=== PATIENT | male | born 1990 | race Caucasian/White ===

== ENCOUNTER 2022-01-28 13:24 | Emergency (ER) | payer MEDICARE, MEDICAID, SELFPAY ==
[2022-01-28] VITALS (18 sets, daily range): BP systolic 143–181; BP diastolic 75–120; PULSE 98–121; RESP 18–28; TEMP 36.8–36.9; O2SAT 98–100; BMI 24.3
--- NOTE | 2022-01-28 13:20 | ECG_ITS ---
APPROVED REPORT Exam: Resting ECG HR:111 bpm ECG Measurements Heart Rate 111 AXES ND 124 P 29 QRSd 153 QRS 70 QT 368 T 49 QTc 433 Conclusion SINUS TACHYCARDIA LEFT ATRIAL ENLARGEMENT [-0.15mV P-WAVE IN V1/V2] RIGHT BUNDLE BRANCH BLOCK [120+ ms QRS DURATION, UPRIGHT V1, 40+ ms S IN I/aVL/V4/V5/V6] ABNORMAL ECG UNCONFIRMED REPORT Electronically signed by : Marcio Mishra MD 01/29/2022 06:56:40
--- NOTE | 2022-01-28 13:27 | XR_ITS ---
FINAL REPORT CLINICAL HISTORY: cough, SOA FINDINGS: SINGLE-VIEW CHEST There is mild cardiomegaly. The mediastinum is normal. There are patchy bibasilar airspace infiltrates, right greater than left probably due to small focus of pneumonia. There is no pneumothorax. IMPRESSION: Bibasilar infiltrates, probably due to small focus of pneumonia. Reviewed, Interpreted and Dictated by Arnulfo Granados MD Transcribed by Shyanne Beavers Authenticated and [facility]
[2022-01-28 13:37] LABS: Basophils # 0.1 K/mm3 (0-0.2); Basophils % 0.9 % (0.1-2.0); Eosinophils # 0.3 K/mm3 (0.0-0.4); Eosinophils % 3.7 % (0.1-12.0); Hematocrit 22.9 % (42.0-52.0); Hemoglobin 7.7 g/dL (14.1-18.0); Lymphocytes # 1.7 K/mm3 (0.7-4.5); Lymphocytes % 18.9 % (10-50); Mean Corpuscular HGB Conc 33.7 g/dL (31.8-35.4); Mean Corpuscular Volume 95.1 fl (80-94); Mean Platelet Volume 9.4 fl (7.4-10.4); Monocytes # 0.4 K/mm3 (0.1-1.0); Monocytes % 4.7 % (1.7-9.3); Neutrophils # 6.5 K/mm3 (1.8-7.8); Neutrophils % 71.9 % (37.0-80.0); Platelet Count 189 K/mm3 (142-424); Red Blood Count 2.41 M/mm3 (4.60-6.20)
[2022-01-28 13:38] LABS: Chloride 93 mmol/L (98-107); Potassium 5.9 mmoL/L (3.5-5.1); Sodium 139 mmol/L (136-145)
--- NOTE | 2022-01-28 13:38 | HMH.EDGENADL ---
Discharge Plan Disposition Chief Complaint: Shortness of Breath/Dyspnea Referrals Follow up/Referrals: Provider,Guy, [Primary Care Provider] - See instructions Clinical Impressions Clinical Impression: Community acquired pneumonia, End-stage renal disease on hemodialysis, Acute hyperkalemia Discharge ED Provider: Jose Rogers General Adult HPI General Chief complaint: Shortness of Breath/Dyspnea Stated complaint: soa Time Seen by Provider: 01/28/22 13:25 Mode of Arrival: EMS Source of Information: Patient Limitations: No Limitations Description of Symptoms (Recalled from ER Triage Doc. by RN): to ed per squad with c/o sob starting this am. pt with hx of dialysis last treatment yesterday. pt states his blood count has been low and had a blood transfusion 2 days ago. pt alert pale, History of Present Illness HPI narrative: This is a 31-year-old male presenting to the emergency department with some shortness of breath and generalized weakness. Patient has a longstanding history of end-stage renal disease on hemodialysis Monday, and Monday. Patient states that he had a dialysis treatment yesterday without any complications. He woke up this morning and he was short of breath. He felt he was having difficulties catching his breath. Patient is a longstanding history of low hemoglobin and anemia. Patient states that he had a blood transfusion 2 days ago due to a low hemoglobin. Patient is not having associated cough or hemoptysis. He denies any headache or change in vision. No focal weakness. No chest pain. No palpitations. Denies abdominal pain or vomiting. No diarrhea. Related Data Allergies Allergy/AdvReac Type Severity Reaction Status Date / Time Iodinated Contrast Media Allergy Verified 01/28/22 13:29 [facility] Social History Smoking Status: Current every day smoker alcohol intake: never current occupational status: unemployed Travel in the last 8 weeks: None ROS Obtained: Yes All systems reviewed & no additional complaints except as documented Constitutional Constitutional: Denies fever(s), Denies headache(s) and Reports weakness Eyes Eyes: Denies change in vision ENT Ears, Nose, Mouth, and Throat: Denies headache(s) Cardiovascular Cardiovascular: Denies chest pain and Reports dyspnea Respiratory Respiratory: Reports dyspnea Gastrointestinal Gastrointestingal: Denies vomiting Integumentary/Breasts Skin/Breast: Denies rash Neurologic Neurologic: Denies headache(s) and Reports weakness Physical Exam General General appearance: alert and anxious Head Head exam: atraumatic and normocephalic Eye Eye exam: Present normal appearance, PERRL and EOMI Respiratory Respiratory exam: Present wheezes; Absent respiratory distress Cardiovascular Cardiovascular exam: Present normal rhythm and tachycardia Abdominal Exam Abdominal exam: Present soft; Absent distention, tenderness, guarding, rebound, rigidity or mass Extremities Exam Extremities exam: Present normal inspection and full ROM; Absent tenderness Neurological Exam Neurological exam: Present alert and oriented X3; Absent motor sensory deficit Skin Skin exam: Present warm and pallor Medical Decision Making Medical Records Medical records reviewed: Yes I reviewed the patient's medical records. [facility] Inquiry Pt receiving controlled substance: No Vital Signs: 01/28/22 13:25 01/28/22 14:00 01/28/22 14:30 Temperature 98.2 F Temperature Source Oral Pulse Rate 108 H 105 H Pulse Rate [Radial] 111 H Respiratory Rate 28 H 18 18 Blood Pressure 174/103 H 165/99 H Blood Pressure [Right Arm] 178/103 H Blood Pressure Mean 132 129 Blood Pressure Mean [Right Arm] 128 Blood Pressure Position [Right Arm] Sitting 02 Sat by Pulse Oximetry 100 100 100 Oxygen Delivery Method Room Air 01/28/22 15:00 01/28/22 15:30 01/28/22 16:00 Temperature Temperatu
[2022-01-28 13:41] LABS: Alanine Aminotransferase 14 U/L (12-78); Albumin Level 4.3 g/dl (3.5-5.0); Albumin/Globulin Ratio 1.7 (1.1-1.8); Alkaline Phosphatase 120 U/L (38-126); Anion Gap 25.9 mEq/L (5-15); Aspartate Amino Transferase 21 U/L (17-59); Bilirubin,Total 1.1 mg/dl (0.2-1.3); Blood Urea Nitrogen 58 mg/dl (9-20); Carbon Dioxide 26 mmol/L (22.0-30.0); Creatinine Clearance Estimated 11 mL/min (50-200); Estimated Glomerular Filt Rate 5 ml/min (>60); GFR (African American) 6 ML/MIN (>60); Globulin 2.5 g/dL (1.3-3.2); Glucose 83 mg/dl (74-100); Total Protein,Serum 6.8 g/dl (6.3-8.2)
[2022-01-28 13:44] LABS: INR 1.11 (0.9-1.1); Prothrombin Time 11.9 seconds (10.1-12.5)
--- NOTE | 2022-01-28 13:47 | PC.NURSE ---
aware of creatinine of 12.10
--- NOTE | 2022-01-28 14:06 | PC.NURSE ---
MD aware of trop of 0.20
[2022-01-28 14:35] LABS: NT Pro Brain Natriuretic Pep. 205000 pg/mL (0-125)
--- NOTE | 2022-01-28 14:39 | PC.NURSE ---
attempted to call [facility] for transfer after speaking with 6 people they advised they did not have nephrology or do dialysis on the weekends and hung up.
--- NOTE | 2022-01-28 14:56 | PC.NURSE ---
placed call to [facility] they have no beds at any facility but did put the pt a waiting list.
[2022-01-28 15:05] LABS: Coronavirus 19, PCR Not Detected (NotDetected); Influenza A, PCR Not Detected (NotDetected); Influenza B, PCR Not Detected (NotDetected)
--- NOTE | 2022-01-28 15:11 | PC.NURSE ---
[facility] called back and advised they could not admit pt due to unavailability of dialysis on the weekend.
--- NOTE | 2022-01-28 15:30 | PC.NURSE ---
placed call to they declined
--- NOTE | 2022-01-28 15:32 | PC.NURSE ---
placed call to [facility] awaiting call back reguarding transfer
--- NOTE | 2022-01-28 15:38 | PC.NURSE ---
Dr Rogers speaking to [facility]
--- NOTE | 2022-01-28 15:51 | PC.NURSE ---
placed call to [facility], awaiting return call
--- NOTE | 2022-01-28 15:55 | PC.NURSE ---
Dr Shore speaking with Dr Magdaleno at [facility]
--- NOTE | 2022-01-28 15:57 | PC.NURSE ---
pt accepted to [facility], waiting bed assignment
--- NOTE | 2022-01-28 16:31 | PC.NURSE ---
called for meal tray for pt
--- NOTE | 2022-01-28 16:47 | PC.NURSE ---
Lab in room to draw 2nd TROP
--- NOTE | 2022-01-28 17:18 | PC.NURSE ---
[facility] called requesting facesheet to [phone]
[2022-01-28 17:26] LABS: Troponin I 0.21 ng/ml (0.00-0.034)
--- NOTE | 2022-01-28 18:53 | PC.NURSE ---
pt resting updated on plan of care
[2022-01-28 19:58] LABS: Troponin I 0.21 ng/ml (0.00-0.034)
--- NOTE | 2022-01-28 19:59 | PC.NURSE ---
Dr. Tejeda notified of critical troponin
--- NOTE | 2022-01-28 20:03 | PC.NURSE ---
Pt complains of his feet Pulsing Notified RN
--- NOTE | 2022-01-28 20:40 | PC.NURSE ---
patient given warm blankets, lights turned down
--- NOTE | 2022-01-28 21:24 | PC.NURSE ---
Loren from access center called for a pt update, gave update. Updated on pt's VS. Will tiffany when bed available.
--- NOTE | 2022-01-28 22:40 | PC.NURSE ---
Rounded on pt. Limb alert bracelet placed on left arm. Pt voiced no needs or concerns at this time. Call light within reach.
--- NOTE | 2022-01-28 23:07 | PC.NURSE ---
Call from Ash at [facility], patient is going to 3B, number to call report is [phone]. ED staff notified
--- NOTE | 2022-01-28 23:15 | PC.NURSE ---
Late Entry: 01/28/22 @2315- pt update on bed availability at [facility]. Collected his belongings and placed in pt belongings bag: wallet, cell phone, and pair of heavy boots.
--- NOTE | 2022-01-28 23:20 | PC.NURSE ---
Called report to [facility], s/w Purity RN. [facility] notified of pt transport.
--- NOTE | 2022-01-28 23:37 | PC.NURSE ---
Thor arrived for pt transport to [facility]
[2022-01-29] VITALS: BP 153/87; PULSE 108; RESP 16; TEMP 36.8; O2SAT 98
== END 2022-01-29 00:02 | disposition short-term general hospital (02) ==
PROVIDERS: Emergency Provider Emergency Medicine
DX: J18.9 Pneumonia, unspecified organism (principal); N18.6 End stage renal disease; E78.5 Hyperlipidemia, unspecified; Z72.0 Tobacco use; Z91.041 Radiographic dye allergy status; D64.9 Anemia, unspecified
CPT/HCPCS: 36415; 71045; 80053; 83880; 84484; 85025; 85610; 85730; 93005; 96365; 96375; 99285; C9803; J0696; U0003; U0005